=== PATIENT | female | born 1960 | race Two or more races ===

== ENCOUNTER 2019-02-03 23:31 | Emergency (ER) | payer OTHER ==
[~2019-02-03] VITALS: Ht 160 cm; Wt 68.0 kg
[2019-02-04 00:25] VITALS: BP 161/90
== END 2019-02-04 01:23 | disposition home or self-care (01) ==
LOC: ED 02-04 00:43
DX: J02.8 Acute pharyngitis due to other specified organisms (principal); R05 Cough; F17.200 Nicotine dependence, unspecified, uncomplicated
CPT/HCPCS: 99283